=== PATIENT | male | born 1960 | race Caucasian/White ===

== ENCOUNTER 2023-06-14 21:24 | Emergency (ER) | payer BC ==
[~2023-06-14] VITALS: Ht 188 cm; Wt 69.4 kg
[2023-06-14 22:41] VITALS: BP 136/62; PULSE 78; RESP 16; O2SAT 98
[2023-06-14] MEDS ORDERED: CEPH500B PO (22:54)
[2023-06-14] MEDS ORDERED: IBUP-1493 PO (22:54)
[2023-06-14] MEDS ORDERED: TETANUS/DIPHTHERIA TOXOID [ADULT] 0.5 ML VIAL IM ONE (23:00)
[2023-06-14] MEDS ORDERED: CEFAZOLIN SODIUM 1 GM VIAL IVPB SCH (23:00)
== END 2023-06-14 23:43 | disposition home or self-care (01) ==
LOC: EDH 21:24
DX: S81.812A Laceration without foreign body, left lower leg, initial encounter (principal); F17.200 Nicotine dependence, unspecified, uncomplicated; W18.39XA Other fall on same level, initial encounter; Y93.89 Activity, other specified; Y92.89 Other specified places as the place of occurrence of the external cause; Y99.8 Other external cause status
CPT/HCPCS: 99284; 12035; 96365; 90714; 73590; 90471; J0690; 12005